=== PATIENT | female | born 1985 | race Caucasian/White ===

== ENCOUNTER 2019-03-05 23:16 | Emergency (ER) | payer OTHER, SELFPAY ==
[2019-03-05 23:38] VITALS: BP 115/78; PULSE 74; RESP 18; TEMP 36.6; O2SAT 100
--- NOTE | 2019-03-05 23:58 | ED.WOUNDLAC ---
HPI - Wound/Laceration General Chief Complaint: Wound/Laceration Stated Complaint: Laceration Source: patient Mode of arrival: ambulatory Limitations: no limitations History of Present Illness HPI narrative: 33-year-old female presents to the emergency department with some small avulsion injury to the webbing of her left thumb and index finger that occurred earlier this evening after she would reach in to a garbage can and other was a piece of glass that caused some an avulsion injury. Initially there was some some bleeding was minimal currently no bleeding of the patient presented because of some numbness to her left thumb with some mild swelling. Onset (ago): hour(s) Extremity Location: Left: hand (small avulsion injury to the web of her left thumb) Place: home Patient tetanus UTD: Yes Context: accidental Associated symptoms: pain Related Data Home Medications Medication Instructions Recorded Confirmed No Home Medications 03/05/19 03/05/19 Allergies Allergy/AdvReac Type Severity Reaction Status Date / Time amoxicillin Allergy Unknown Verified 03/05/19 23:36 Review of Systems Review of Systems: All systems reviewed & are unremarkable except as noted in HPI and below PMFSH Past Medical History Medical History Patient denies medical problems Exam Const: General: no acute distress Nutritional Appearance: well nourished Orientation/consciousness: patient oriented x3 HENMT: Head: normal to inspection Eyes: Conjunctivae: conjunctivae normal Pupils: Equal, round and reactive pupils present Neck: Neck: normal visual inspection and no lymphadenopathy Resp: Effort & Inspection: normal respiratory effort Cardio: Rate: regular rate GI: GI Palp: Yes Soft to palpation Skin: General skin exam: normal color Rashes: no rashes Neuro: General: patient oriented x3 and moves all extremities Extrem: General: normal to inspection Other: Small 1cm avulsion injury to the webbing of her left thumb between her left thumb and index finger Psych: Mental Status: mental status grossly normal Course Vital Signs Vital signs: Vital Signs Temperature 36.6 C 03/05/19 23:38 Pulse Rate 74 03/05/19 23:38 Respiratory Rate 18 03/05/19 23:38 Blood Pressure 115/78 03/05/19 23:38 Pulse Oximetry 100 03/05/19 23:38 Temperature 36.6 C 03/05/19 23:38 Pulse Rate 74 03/05/19 23:38 Respiratory Rate 18 03/05/19 23:38 Blood Pressure 115/78 03/05/19 23:38 Pulse Oximetry 100 03/05/19 23:38 Procedures Laceration Laceration 1: Date: 03/06/19 Time: 00:03 Site: hand Side (If applicable): left Size (cm): 1 Description: flap Depth: simple, single layer Pre-repair: wound explored and irrigated ====== Skin Level ====== Skin layer closed with: dermabond ====== Subcutaneous Layer ====== ====== Muscle Layer ====== ====== Tendon Layer ====== Critical Care Time Critical Care Time Critical Care Time: No Discharge Plan Discharge Clinical Impression: Avulsion of skin, Laceration Patient Disposition: Home, Self-Care Condition: Stable Instructions: Antibiotic Form, Laceration (ED), Skin Adhesive Care (ED) Additional Instructions: follow-up with primary care physician if symptoms persist or worsen. Prescriptions: No Action No Home Medications RF: 0 Follow-up/Referrals: Larry Engel MD [Primary Care Provider] - Time of Disposition: 00:05
[2019-03-06 00:10] VITALS: RESP 15; O2SAT 99
== END 2019-03-06 00:10 | disposition home or self-care (01) ==
PROVIDERS: Emergency Provider Emergency Medicine; PCP Internal Medicine
DX: S61.412A Laceration without foreign body of left hand, initial encounter (principal); W45.8XXA Other foreign body or object entering through skin, initial encounter
CPT/HCPCS: 12001; 99282

== ENCOUNTER 2020-11-05 11:04 | Outpatient (CLI) | payer OTHER, SELFPAY ==
[2020-11-05 12:29] LABS: SARS-CoV-2 RNA PCR Negative (Negative)
== END 2020-11-05 11:05 | disposition home or self-care (01) ==
LOC: CHSLAB 11:09
PROVIDERS: PCP Internal Medicine; Visit Provider Internal Medicine
DX: Z20.822 Contact with and (suspected) exposure to COVID-19 (principal)
CPT/HCPCS: C9803; U0003; U0005

== ENCOUNTER 2021-02-09 16:21 | Outpatient (CLI) | payer OTHER, SELFPAY ==
[2021-02-09 17:53] LABS: Influenza Control Valid (Valid)
[2021-02-09 17:54] LABS: SARS-CoV-2 Ag Negative (Negative)
== END 2021-02-09 16:22 | disposition home or self-care (01) ==
LOC: CHSLAB 16:24
PROVIDERS: PCP Internal Medicine; Visit Provider Internal Medicine
DX: J06.9 Acute upper respiratory infection, unspecified (principal); Z20.822 Contact with and (suspected) exposure to COVID-19
CPT/HCPCS: 36415; 87426; 87804; C9803

== ENCOUNTER 2023-07-25 13:03 | Outpatient (CLI) | payer OTHER, SELFPAY ==
--- NOTE | ~2023-07-25 | US_ITS ---
EXAMINATION: US OB <= 14 weeks fetus DATE: 07/25/2023 13:45 INDICATION: Amenorrhea, unspecified. TECHNIQUE: Real-time transabdominal pelvic ultrasound was performed. COMPARISON: None. FINDINGS: The uterus measures 10.3 x 7.8 x 6.1 cm. There is an intrauterine gestational sac with mean diameter of 2.6 cm. A yolk sac is identified. The crown rump length measures 0.6 cm. The gestational sa c size and crown rump length together correlate with an estimated gestational age of 7 weeks an d 0 day(s) (+/-) 3 day(s). heart motion is identified measuring 157 beats per minute (bpm) by M -mode Doppler. There is a small subchorionic hematoma. The right ovary is not visualized. The left ov dori measures 3.0 x 3.2 x 3.7 cm. There is no free fluid in the pelvis. IMPRESSION: 1. Single live intrauterine gestation with estimated date of delivery of 03/12/2024. 2. Small subchorionic hematoma. Reviewed, dictated and finalized at location A. IMPRESSION: 1. Single live intrauterine gestation with estimated date of delivery of 025. 2. Small subchorionic hematoma.
== END 2023-07-25 13:04 | disposition home or self-care (01) ==
PROVIDERS: PCP Internal Medicine; Visit Provider Nurse Practitioner Obstetrics & Gynecology
DX: N91.2 Amenorrhea, unspecified (principal); Z33.1 Pregnant state, incidental
CPT/HCPCS: 76801

== ENCOUNTER 2023-10-27 11:51 | Outpatient (CLI) | payer OTHER, SELFPAY ==
--- NOTE | ~2023-10-27 | US_ITS ---
EXAMINATION: US OB limited DATE: 10/27/2023 12:11 INDICATION: Antepartum hemorrhage. TECHNIQUE: Real-time ultrasound of the pelvis was performed. COMPARISON: Ultrasound 07/25/2023 FINDINGS: There is a single fetus in vertex presentation. The placenta is anterior, 1.2 cm from the cervix. Fe hany heart rate is 140 beats per minute (bpm). The amniotic fluid volume is subjectively normal. The d eepest vertical pocket is 5.3 cm which is normal. IMPRESSION: 1. Single living fetus in vertex presentation. 2. No hematoma. 3. Low-lying placenta. Reviewed, dictated and finalized at location A.
== END 2023-10-27 11:52 | disposition home or self-care (01) ==
LOC: ANHIMG 11:52
PROVIDERS: PCP Internal Medicine; Visit Provider Nurse Practitioner Obstetrics & Gynecology
DX: O44.40 Low lying placenta NOS or without hemorrhage, unspecified trimester (principal); Z3A.00 Weeks of gestation of pregnancy not specified
CPT/HCPCS: 76815

== ENCOUNTER 2023-11-30 08:46 | Outpatient (CLI) | payer OTHER, SELFPAY ==
[2023-11-30 10:11] LABS: Basophils Absolute Auto 0.03 K/mm3 (0.00-0.10); Basophils Percent Auto 0.3 % (0.0-1.0); Eosinophils Absolute Auto 0.22 K/mm3 (0.02-0.50); Hematocrit 34.5 % (35.0-49.0); Hemoglobin 11.4 g/dL (12.0-15.0); Immature Granulocyte Absolute 0.12 K/mm3 (0.00-0.00); Immature Granulocyte Percent A 1.1 % (0.0-0.0); Lymphocytes Percent Auto 18.5 % (18.0-42.0); Mean Corpuscular Hemoglobin 31.4 pg (27.0-31.0); Mean Platelet Volume 9.9 fl (9.2-11.8); Monocytes Absolute Auto 0.69 K/mm3 (0.10-0.90); Monocytes Percent Auto 6.4 % (2.0-11.0); Neutrophils Absolute Auto 7.78 K/mm3 (1.70-7.20); Neutrophils Percent Auto 71.7 % (50.0-70.0); Platelet Count Result 229 K/mm3 (150-420); Red Blood Count 3.63 M/mm3 (4.20-5.40); Red Cell Distribution Width 12.1 % (11.6-14.4); White Blood Count 10.8 K/mm3 (4.8-10.8)
[2023-11-30 10:45] LABS: Glucose 1 Hour PP 50gm Dose 75 mg/dL (70-130)
== END 2023-11-30 08:47 | disposition home or self-care (01) ==
LOC: CHSLAB 08:47
PROVIDERS: PCP Internal Medicine; Visit Provider Obstetrics & Gynecology
DX: O09.90 Supervision of high risk pregnancy, unspecified, unspecified trimester (principal)
CPT/HCPCS: 36415; 82105; 82677; 82947; 84702; 85025; 86336

== ENCOUNTER 2024-01-23 09:45 | Outpatient (CLI) | payer OTHER, SELFPAY ==
[2024-01-23 10:06] LABS: Basophils Absolute Auto 0.04 K/mm3 (0.00-0.10); Basophils Percent Auto 0.3 % (0.0-1.0); Eosinophils Absolute Auto 0.23 K/mm3 (0.02-0.50); Eosinophils Percent Auto 1.8 % (1.0-6.0); Hematocrit 34.9 % (35.0-49.0); Hemoglobin 11.8 g/dL (12.0-15.0); Immature Granulocyte Absolute 0.22 K/mm3 (0.00-0.00); Immature Granulocyte Percent A 1.8 % (0.0-0.0); Lymphocytes Absolute Auto 2.07 K/mm3 (1.10-4.50); Lymphocytes Percent Auto 16.6 % (18.0-42.0); Mean Corpuscular HGB Conc 33.8 g/dL (32-36); Mean Corpuscular Hemoglobin 30.8 pg (27.0-31.0); Mean Corpuscular Volume 91.1 fL (78.0-102.0); Mean Platelet Volume 9.7 fl (9.2-11.8); Monocytes Absolute Auto 0.81 K/mm3 (0.10-0.90); Monocytes Percent Auto 6.5 % (2.0-11.0); Neutrophils Absolute Auto 9.11 K/mm3 (1.70-7.20); Platelet Count Result 215 K/mm3 (150-420); Red Blood Count 3.83 M/mm3 (4.20-5.40); Red Cell Distribution Width 12.7 % (11.6-14.4); White Blood Count 12.5 K/mm3 (4.8-10.8)
[2024-01-23 10:12] LABS: Add Urine Microscopic? YES; Appearance Urine Clear (Clear); Bilirubin Urine Negative (Negative); Blood Urine Negative (Negative); Color Urine Yellow (Yellow); Glucose Urine UA Negative (Negative); Ketones Urine Negative (Negative); Leukocyte Esterase Ur Negative (Negative); Nitrate Urine Negative (Negative); Protein Urine Trace (Negative); Specific Grav Ur 1.015 (1.010-1.020); Urobilinogen Urine 0.2 mg/dL (0.2-1.0); pH Urine 6.5 (5.0-8.0)
[2024-01-23 10:14] LABS: Bacteria Urine Trace /hpf; RBC Urine None seen /hpf (0-2); Squamous Epithelial Cell Urine Few /hpf (Few); WBC Urine None seen /hpf (0-3)
[2024-01-23 11:39] LABS: HIV 1 P24 AG Negative (Negative); HIV 1/2 AB Negative (Negative)
[2024-01-25 16:58] LABS: RPR Screen NON-REACTIVE (NON-REACTIVE)
== END 2024-01-23 09:46 | disposition home or self-care (01) ==
LOC: CHSLAB 09:47
PROVIDERS: Obstetrics & Gynecology; PCP Internal Medicine; Visit Provider Nurse Practitioner Obstetrics & Gynecology
DX: Z34.90 Encounter for supervision of normal pregnancy, unspecified, unspecified trimester (principal)
CPT/HCPCS: 36415; 81001; 85025; 86592; 86850; 86900; 86901; 87806

== ENCOUNTER 2024-02-28 09:12 | Outpatient (RCR) | payer OTHER, SELFPAY ==
[2024-02-21 09:31] VITALS: BP 120/83; PULSE 99
--- NOTE | ~2024-02-28 | US_ITS ---
EXAMINATION: US OB limited DATE: 02/21/2024 09:55 INDICATION: Advanced maternal age. Third trimester. TECHNIQUE: Real-time ultrasound of the pelvis was performed. COMPARISON: Ultrasound 10/27/2023 FINDINGS: There is a single fetus in vertex presentation. The placenta is anterior. heart rate is 144 be ats per minute (bpm). The amniotic fluid index is 15.9 cm, which is normal. IMPRESSION: 1. Single living fetus in vertex presentation. 2. Normal amniotic fluid index. Reviewed, dictated and finalized at location A. RUCTIONAL SUPPORT ASSISTANT
--- NOTE | ~2024-02-28 | US_ITS ---
US OB limited 02/28/2024 10:26 Indication: Evaluate amniotic fluid index Procedure: High-resolution Limited obstetrical ultrasound Comparison: 02/21/2024 Findings: There is a single living intrauterine in vertex presentation. Placenta is located anterior without previa. Amniotic fluid index is at the upper end of normal measuring 23.6 cm. Swati l range 7.3-23.9 cm. heart rate is 134 BPM. Impression: 1: KAISER is at the upper limits of normal measuring 23.6 cm. Reviewed, dictated and finalized at location A. EATION ADVISER Impression: 1: KAISER is at the upper limits of normal measuring 23.6 cm.
[2024-02-28 09:46] VITALS: BP 114/79; PULSE 94
== END 2024-04-06 07:54 | disposition home or self-care (01) ==
LOC: ANHOBOP 09:12
PROVIDERS: PCP Internal Medicine; Visit Provider Obstetrics & Gynecology
DX: O09.513 Supervision of elderly primigravida, third trimester (principal)
CPT/HCPCS: 59025; 76815

== ENCOUNTER 2024-03-04 10:36 | Outpatient (CLI) | payer OTHER, SELFPAY ==
[2024-03-04 11:08] LABS: Hematocrit 37.3 % (37.0-47.0); Mean Corpuscular HGB Conc 32.2 g/dl (32-36); Mean Corpuscular Hemoglobin 30.8 pg (26-34); Mean Corpuscular Volume 95.6 fl (80-100); Mean Platelet Volume 10.6 fl (7.4-10.4); Platelet Count Result 210 k/mm3 (150-375); Red Cell Distribution Width 13.7 % (11.5-14.5); White Blood Count 10.9 K/mm3 (4.5-10.0)
--- OUTSIDE RECORDS SUMMARY | 2024-03-04 11:40 | XMS_ITS | Clinical Summary ---
Author Organization [facility] Address [address] [place] [address] Phone Care Team Providers Care Radiation Physicist Name Role Phone Unavailable Primary Care Provider Unavailabl e Encounters Date Type Department Care Team Description 02/29/2024 External Device Data STL ABSTRACTION Provider, Abstract 02/27/2024 External Device Data STL ABSTRACTION Provider, Abstract 02/13/2024 8:00 AM PACKAGE CHECKER - 02/13/2024 11:59 PM PACKAGE CHECKER Hospital Encounter [facility] [address] [place] [address] Demetri Brewer MD Discharge Disposition: Home or Self Care 01/15/2024 8:30 AM PACKAGE CHECKER - 01/15/2024 11:59 PM PACKAGE CHECKER Hospital Encounter [facility] [address] [place] [address] Dwayne Germain MD Discharge Disposition: Home or Self Care from Last 3 Months Social History Tobacco Use Types Packs/Day Years Used Date Smoking Tobacco: Never Assessed Comments Unknown Sex and Gender Information Value Date Recorded Sex Assigned at Not on file Legal Sex Female 7:32 AM CDT Gender Identity Not on file Sexual Orientation Not on file Plan of Treatment Health Maintenance Due Date Last Done Comments DTAP/TDAP/TD VACCINES (1 - Tdap) 05/19/2006 HEPATITIS B VACCINES (1 of 3 - 19+ 3-dose series) 05/19/2006 CERVICAL CANCER SCREENING 05/19/2017 INFLUENZA VACCINE (#1) 2023 HPV VACCINES Aged Out No longer eligi ble based on patient's age to complete this topic PNEUMOCOCCAL VACCINE 0-64 YEARS Aged Out No longer eligible based on patient's age to complete this topic Procedures Procedure Name Priority Date/Time Associated Diagnosis Comments US OB FOLLOW UP PER FETUS Routine 02/13/2024 8:28 AM PACKAGE CHECKER Advanced maternal age in multigravida, third trimester Large for dates US OB FOLLOW UP PER FETUS Routine 01/15/2024 8:57 AM PACKAGE CHECKER Encounter for ultrasound to assess growth Advanced maternal age in multigravida, second trimester Uterine size date discrepancy Low-lying placenta from Last 3 Months Results * US OB FOLLOW UP PER FETUS (02/13/2024 8:28 AM PACKAGE CHECKER) Only the most recent of2 resultswithin the time period is included. Anatomical Region Laterality Modality Pelvis Ultrasound 02/13/2024 8:02 AM PACKAGE CHECKER Narrative 02/14/2024 3:26 PM PACKAGE CHECKER STL FOLLOW UP ----- Pat. Name: ANGELA LAKE Study Date: 02/13/2024 8:02am Pat. NO: [id number] Referring ??MD: DWAYNE GERMAIN MD Site: [place] [employer] Machine Operator: Monica Pearce RDMS : 1985 Age: 38 ----- INDICATION ----- Screening Follow-Up Advanced Maternal Age (AMA), Multigravida Maternal Care for Low Transverse Scar from Previous Delivery (Previous ) CODING ----- Diagnoses ? Z3A.36: Weeks of gestation ?O34.211: Maternal care for low transverse scar from previous delivery ?O09.523: Supervision of elderly multigravida ?Z36.3: Encounter for screening for malformations ?Z3A.36: Weeks of gestation ?O09.523: Supervision of elderly multigravida ?Z36.2: Encounter for other screening follow-up Procedures ?73740: Ultrasound, uterus, real time with image documentation, follow up, transabdominal ?approach per fetus HISTORY ----- OB History ? 2. Para 1 ?T1L1 METHOD ----- Transabdominal ultrasound examination ----- Dennison . Number of fetuses: 1 DATING ----- GA by prior assessment 36 w + 1 d VEE by prior assessment: 03/11/2024 Ultrasound examination on: 02/13/2024 GA by U/S based upon: AC, BPD, EFW, Femur, HC GA by U/S 38 w + 5 d VEE by U/S: 02/22/2024 Method of dating: Restore dating from previous exam Assigned: based on stated VEE, selected on 10/26/2023 Assigned GA 36 w + 1 d Assigned VEE: 03/11/2024 BIOMETRY ----- BPD ?94.6 ?mm ?38w 4d ?98% ?Hadlock OFD ?115.8 ? mm ?-/- ?94% ?Froylan HC ? 334.8 ? mm ?38w 2d ?73% ?Hadlock AC ? 357.4 ? mm ?39w 5d ?>99% ?Hadlock Femur ?72.7 ?mm ?37w 2d ?74% ?Hadlock HC / AC ?0.94 ?10% ?Nicolaides Weight Calculation: EFW ? 3,610 ? g ? 40w 0d ?98% ?Hadlock EFW (lb,oz) ? 7 lb 15 ? oz EFW by ?Hadlock ([id number]) Head / Face / Neck Biometry: Contact Center Assistant ? 3.9 ? mm Extremities / Bony Struc Biometry: FL / BPD ?0.77 FL / HC ? 0.22 FL / AC ? 0.20 GENERAL EVALUATION ----- Cardiac activity present. FHR 141 bpm. movements: present. Presentation: cephalic Placenta: Placental site: anterior Umbilical cord: Cord vessels: 3 vessel cord. Insertion site: placental insertion: normal Amniotic fluid: Amount of AF: normal amount. MVP 8.9 cm. KAISER 22.9 cm. Q1 5.5 cm, Q2 8.9 cm, Q3 3.2 cm, Q4 5.3 cm ANATOMY ----- The following structures appear normal: Head / Neck ? Cranium. Lateral ventricles. Cavum septi pellucidi. Heart / Thorax ?Diaphragm. Abdomen ? Stomach. Kidneys. Bladder. GROWTH OVERVIEW ----- Exam date ? GA ?BPD (mm) ?HC (mm) ?AC (mm) ?FL (mm) ?HL (mm) ? EFW (g) 10/26/2023 ?20w 3d ?50.0 ?77% ? 184.1 ? 58% ?161.3 ?70% ? 34.3 ?55% ?32.5 ?69% ? 392 ? 75% 01/15/2024 ? 32w 0d ?87.9 ?>99% ?315.3 ? 92% ?311.4 ?>99% ?64.2 ?69% ? 2,478 ? 98% 02/13/2024 ? 36w 1d ?94.6 ?98% ? 334.8 ? 73% ?357.4 ?>99% ?72.7 ?74% ? 3,610 ? 98% COMMENT ----- Patient's name and date of were verified by the airconditioning drafting officer prior to the exam IMPRESSION ----- 1. Single living fetus with a gestational age of 36w 1d, based on the reported clinical dates. 2. Current growth parameters are consistent with the stated EDC. The size is appropriate for gestational age at 98% percentile (3610 g). 3. Unremarkable limited anatomy noted. A detailed anatomy cannot be performed secondary to advanced gestational age. However, there are no gross structural abnormalities noted. 4. The amniotic fluid is at the upper limits of normal for gestational age (MVP:8.9 cm , KAISER:22.9 cm ). 5. Anterior placenta. No previa/not low-lying. 6. Cephalic presentation. Recommendations: - Further imaging as indicated. Thank you for allowing us to participate in the care of this patient. ADDENDUM ----- retrigger order Procedure Note Nina Hughes MD - 02/14/2024 STL FOLLOW UP ----- Pat. Name:Lizandro LAKE Date:02/13/2024 8:02am Pat. NO: [id number] MD:DWAYNE GERMAIN [facility]Mon[facility] Pearce RDMS :1985Age:38 ----- INDICATION ----- Screening Follow-Up Advanced Maternal Age (AMA), Multigravida Maternal Care for Low Transverse Scar from Previous Delivery (Previous ) CODING ----- Diagnoses Z3A.36: Weeks of gestation O34.211: Maternal care for low transverse scarfrom previous delivery O09.523: Supervision of elderly multigravida Z36.3: Encounter for screening formalformations Z3A.36: Weeks of gestation O09.523: Supervision of elderly multigravida Z36.2: Encounter for other screeningfollow-up Procedures 56970: Ultrasound, uterus, real time withimage documentation, follow up, transabdominal approach per fetus HISTORY ----- OB History 2. Para 1 T1L1 METHOD ----- Transabdominal ultrasound examination ----- Dennison . Number of fetuses: 1 DATING ----- GA by prior [id number] w + 1 d VEE by prior assessment:03/11/2024 Ultrasound examination on:02/13/2024 GA by U/S based upon:AC, BPD, EFW, Femur, HC GA by U/S38 w + 5 d VEE by U/S:02/22/2024 Method of dating:Restore dating from previous exam Assigned:based on stated VEE, selected on 10/26/2023 Assigned GA36 w + 1 d Assigned VEE:03/11/2024 BIOMETRY ----- BPD 94.6 mm 38w 4d 98%Hadlock OFD 115.8 mm -/- 94%Froylan HC 334.8 mm 38w 2d 73%Hadlock AC 357.4 mm 39w 5d >99%Hadlock Femur 72.7 mm 37w 2d 74%Hadlock HC / AC 0.94 10%Nicolaides Weight Calculation: EFW 3,610 g 40w 0d98% Hadlock EFW (lb,oz) 7 lb 15 oz EFW by Hadlock ([id number]) Head / Face / Neck Biometry: Contact Center Assistant 3.9mm Extremities / Bony Struc Biometry: FL / BPD 0.77 FL / HC 0.22 FL / AC 0.20 GENERAL EVALUATION ----- Cardiac activity present. FHR 141 bpm. movements: present.Presentation: cephalic Placenta: Placental site: anterior Umbilical cord: Cord vessels: 3 vessel cord. Insertion site: placentalinsertion: normal Amniotic fluid: Amount of AF: normal amount. MVP 8.9 cm. KAISER 22.9 cm. Q15.5 cm, Q2 8.9 cm, Q3 3.2 cm, Q4 5.3 cm ANATOMY ----- The following structures appear normal: Head / Neck Cranium. Lateral ventricles. Cavum septipellucidi. Heart / Thorax Diaphragm. Abdomen Stomach. Kidneys. Bladder. GROWTH OVERVIEW ----- Exam date GA BPD (mm) HC (mm) AC (mm)FL (mm) HL (mm) EFW (g) 10/26/2023 20w 3d 50.0 77% 184.1 58% 161.3 70%34.3 55% 32.5 69% 392 75% 01/15/2024 32w 0d 87.9 >99% 315.3 92% 311.4 >99%64.2 69% 2,478 98% 02/13/2024 36w 1d 94.6 98% 334.8 73% 357.4 >99%72.7 74% 3,610 98% COMMENT ----- Patient's name and date of were verified by the airconditioning drafting officer prior tothe exam IMPRESSION ----- 1. Single living fetus with a gestational age of 36w 1d, based on thereported clinical dates. 2. Current growth parameters are consistent with the stated EDC. The fetalsize is appropriate for gestational age at 98% percentile (3610 g). 3. Unremarkable limited anatomy noted. A detailed anatomycannot be performed secondary to advanced gestational age. However, there are no gross structural abnormalities noted. 4. The amniotic fluid is at the upper limits of normal for gestational age(MVP:8.9 cm , KAISER:22.9 cm ). 5. Anterior placenta. No previa/not low-lying. 6. Cephalic presentation. Recommendations: - Further imaging as indicated. Thank you for allowing us to participate in the care of this patient. ADDENDUM ----- retrigger order Demetri Brewer MD ORDERABLES Aurelia schwab - Final from Last 3 Months Insurance MEDICAID
--- OUTSIDE RECORDS SUMMARY | 2024-03-04 11:40 | XMS_ITS | Clinical Summary ---
Author Organization [facility] Address [address] [place] [address]. [place], [place] [address] [place] [address] Care Team Providers Care Screw Machine Operator Single Spindle Name Role Phone Unavailable Primary Care Provider Unavailabl e Social History Tobacco Use Types Packs/Day Years Used Date Smoking Tobacco: Never Assessed Comments Unknown Sex and Gender Information Value Date Recorded Sex Assigned at Not on file Legal Sex Female 8:10 PM CDT Gender Identity Not on file Sexual Orientation Not on file Plan of Treatment Health Maintenance Due Date Last Done Comments Cervical Cancer Screening Pa p Smear (Age 30 to 64) Every 3 Years 1985 Annual Physical 05/19/1990 Hepatitis C 05/19/2005 DTaP, Tdap and Td Vaccines ( 1 - Tdap) 05/19/2006 Hepatitis B Vaccines (1 of 3 - 19+ 3-dose series) 05/19/2006 Cervical Cancer Screening Pa p with HPV Testing (Age 30 to 64) Every 5 Years 05/19/2017 Cervical Cancer Screening with HPV 05/19/2017 COVID-19 Vaccine (2023-2 5 season) 2023 Influenza Adult (#1) 2023 HPV Vaccines Aged Out No longer eligi ble based on patient's age to complete this topic Meningococcal B Vaccine Aged Out No l onger eligible based on patient's age to complete this topic Meningococcal Vaccine Aged Out No derrick barbara eligible based on patient's age to complete this topic Pneumococcal Vaccine: Pediat rics (0 to 5 Years) and At-Risk Patients (6 to 64 Years) Aged Out No longer eligible b ased on patient's age to complete this topic RSV Immunizations Under 20 Months Aged Out No longer eligible based on patient's age to complete this topic
[2024-03-04 11:59] LABS: HIV 1/2 Ab P24 Ag Result Negative (Negative)
[2024-03-04 12:35] LABS: Rapid Plasma Reagin Non-Reactive (NonReactive)
== END 2024-03-04 10:37 | disposition home or self-care (01) ==
LOC: ANHLAB 10:38
PROVIDERS: PCP Internal Medicine; Visit Provider Obstetrics & Gynecology
DX: Z34.93 Encounter for supervision of normal pregnancy, unspecified, third trimester (principal); Z3A.00 Weeks of gestation of pregnancy not specified
CPT/HCPCS: 36415; 85027; 86592; 86703; 86900; 86901; G0432

== ENCOUNTER 2024-03-05 05:35 | Inpatient (IN) | payer OTHER, SELFPAY ==
[2024-03-05] VITALS (68 sets, daily range): BP systolic 94–137; BP diastolic 37–102; PULSE 58–114; RESP 12–19; TEMP 36.3–37.1; O2SAT 98–100; BMI 36.3
--- NOTE | 2024-03-05 05:35 | LDADM ---
This patient, Angela Lake, was admitted to Labor/Delivery/Recovery 120 on 03/05/24 at 05:35. Plans for labor, pain management and were discussed with patient. Patient/family oriented to hospital policies and general routines including ID bracelet, bed and alarms, visiting hours, pain management, procedures, bathroom and other care routines, personal items, smoking policy, room service/diet and guest tray routines, infant security routines, and visiting hours. Patient/Family are encouraged to report perceived risks to care and to ask questions if they do not understand what they are told or what they should do. See OBIX for further documentation.
--- OUTSIDE RECORDS SUMMARY | 2024-03-05 05:39 | XMS_ITS | Clinical Summary ---
Author Organization [facility] Address [address] [place] [address] Phone Care Team Providers Care Primary Care Provider Name Role Phone Unavailable Primary Care Provider Unavailabl e Encounters Date Type Department Care Team Description 02/29/2024 External Device Data STL ABSTRACTION Provider, Abstract 02/27/2024 External Device Data STL ABSTRACTION Provider, Abstract 02/13/2024 8:00 AM AIR CONDITIONING ENGINEER - 02/13/2024 11:59 PM AIR CONDITIONING ENGINEER Hospital Encounter [facility] [address] [place] [address] Demetri Brewer MD Discharge Disposition: Home or Self Care 01/15/2024 8:30 AM AIR CONDITIONING ENGINEER - 01/15/2024 11:59 PM AIR CONDITIONING ENGINEER Hospital Encounter [facility] [address] [place] [address] Dwayne Germain MD Discharge Disposition: Home or [...] UP PER FETUS Routine 02/13/2024 8:28 AM AIR CONDITIONING ENGINEER Advanced maternal age in multigravida, third trimester Large for dates US OB FOLLOW UP PER FETUS Routine 01/15/2024 8:57 AM AIR CONDITIONING ENGINEER Encounter for ultrasound to assess growth Advanced maternal age in multigravida, second trimester Uterine size date discrepancy Low-lying placenta from Last 3 Months Results * US OB FOLLOW UP PER FETUS (02/13/2024 8:28 AM AIR CONDITIONING ENGINEER) Only the most recent of2 resultswithin the time period is included. Anatomical Region Laterality Modality Pelvis Ultrasound 02/13/2024 8:02 AM AIR CONDITIONING ENGINEER Narrative 02/14/2024 3:26 PM AIR CONDITIONING ENGINEER STL FOLLOW UP ----- Pat. Name: ANGELA LAKE Study Date: 02/13/2024 8:02am Pat. NO: [id number] Referring ??MD: DWAYNE GERMAIN MD Site: [place] Valet Runner: Monica Pearce RDMS : 1985 Age: 38 [...] ?Z36.2: Encounter for other screening follow-up Procedures ?43070: Ultrasound, uterus, real time with image documentation, [...] lb 15 ? oz EFW by ?Hadlock ([id number]) Head / Face / Neck Biometry: Entertainment & Media Correspondent ? 3.9 ? mm Extremities / Bony [...] and date of were verified by the personal lines sales rep prior to the exam IMPRESSION ----- 1. [...] Pat. Name:Lizandro LAKE Date:02/13/2024 8:02am Pat. NO: [id number] MD:DWAYNE GERMAIN MD [facility]Monica Pearce RDMS :1985Age:38 ----- INDICATION ----- Screening [...] multigravida Z36.2: Encounter for other screeningfollow-up Procedures 34502: Ultrasound, uterus, real time withimage documentation, follow up, transabdominal approach per fetus HISTORY ----- OB History 2. Para 1 T1L1 METHOD ----- Transabdominal ultrasound examination ----- Dennison . Number of fetuses: 1 DATING ----- GA by prior [id number] w + 1 d VEE by prior [...] 7 lb 15 oz EFW by Hadlock ([id number]) Head / Face / Neck Biometry: Entertainment & Media Correspondent 3.9mm Extremities / Bony Struc Biometry: FL [...] and date of were verified by the personal lines sales rep prior tothe exam IMPRESSION ----- 1. Single [...]
--- OUTSIDE RECORDS SUMMARY | 2024-03-05 05:39 | XMS_ITS | Clinical Summary ---
Author Organization [facility] Address [address] [place] [address]. [place], [place] [address] [place] [address] Care Team Providers Care Bicycle Taxi Driver Name Role Phone Unavailable Primary Care Provider [...]
[2024-03-05] MEDS: LACTATED RINGERS 1,000 ML 125 ML IV CONT ×3 (06:30→09:32)
[2024-03-05] MEDS: ACETAMINOPHEN 500 MG TABLET 1000 MG PO (06:34)
--- NOTE | 2024-03-05 07:07 | WPDANESEPPF ---
Anes - Initial Pre Proc Eval Procedure: Operation Date: 03/05/24 07:30 Proposed Procedures p Repeat Section - Dwayne Badillo MD Date/Time: 03/05/24 07:07 Surgeon: Dwayne Badillo MD Pre Op Diagnosis: C/S Patient Data Age: 38 Gender: F Height: 1.68 m Weight: 102.25 kg Last Vital Signs Pulse 88 03/05/24 07:00 BP 120/79 03/05/24 07:00 Pulse Ox 99 03/05/24 07:06 O2 Del Method Room Air 03/05/24 06:39 Allergies Allergy/AdvReac Type Severity Reaction Status Date / Time clavulanic acid (From Allergy Mild Hives Verified 02/28/24 14:21 Augmentin) Home Medications ?Medication ?Instructions ?Recorded ?Confirmed ?Type docosahexaenoic acid 200 mg mg PO 07/21/23 02/14/24 History capsule ( DHA) Patient hx anesthesia problems: none Family hx anesthesia problems: none Results Review: All pre-operative results and documents have been reviewed as part of the pre-operative evaluation. [facility] Past Medical History Medical History Frequent headaches Anxiety Patient denies medical problems Surgical History Surgical History H/O section Family History Family History Father Diabetes mellitus borderline Mother Depression Hypertension Social History Social History Smoking status: Former smoker Tobacco type: e-cigarettes/vaping Second hand tobacco smoke exposure: No Alcohol intake: never Substance use: current Do You Feel Safe in your Home?: Yes Lack of Transportation: No Lack of Food: Never True Current Housing: I Have Housing Concerned About Future Housing: No Difficulty Paying Gas/Electric Bills: No Difficulty Paying for Meds: No Currently Unemployed: No Education: Associate Degree Difficulty w/ Childcare or Family Care: No Spiritual care concerns: No Anes - Eval Final PreProcedure Day of Procedure 03/05/24 07:07 Patient weight: obese Heart: regular rate and rhythm Lungs: clear to auscultation and normal air movement Airway: Mallampati scale class II Neurological: alert and oriented Last oral intake: >/= 8 hours ASA classification: II Emergent: no Anesthetic plan: proceed Anesthesia type and monitoring: regional spinal and standard monitoring Results Review: All pre-operative results and documents have been reviewed as part of the pre-operative evaluation. Informed Consent: The patient's anesthetic plan and its attendant risks and benefits were discussed with the patient/family/POA. Questions were solicited and answers provided to the satisfaction of the patient/family/POA.
[2024-03-05] MEDS: FAMOTIDINE 20 MG/2 ML VIAL IV PUSH (08:10)
[2024-03-05] MEDS: ONDANSETRON INJ 4 MG/2 ML VIAL IV PUSH (08:10)
[2024-03-05] MEDS: ceFAZolin 2 GM/D5W 50 ML 2 GM/50 ML BAG IVPB (08:17)
--- NOTE | 2024-03-05 08:18 | WPDHPUPDATE1 ---
History and Physical Update Update Date/Time: 03/05/24 08:18 History and Physical has been reviewed, including an updated exam of the patient. There are NO changes in the patient's condition. Risks, benefits, and alternatives have been discussed and questions answered. Patient agrees to proceed with procedure.
[2024-03-05] MEDS: MORPHINE SULFATE INJ (*CRX) 10 MG/ML AMP 2.5 MG IV PUSH (10:34)
[2024-03-05] MEDS: OXYTOCIN 30 UNITS/NS 500 ML 30 UNITS/500 ML BAG 125 UNITS IV CONT (10:35)
--- NOTE | 2024-03-05 12:04 | OBPPTRN ---
Patient transferred to post room #278 via stretcher. Support person present. Oriented to unit, room, information board, rooming in, admission packet and security measures. Patient verbalizes understanding.
--- NOTE | 2024-03-05 13:16 | P.HP_ITS ---
H&P: HPI History of Present Illness Date/Time: 03/05/24 13:16 Chief Complaint: Repeat section Narrative: Patient is a 38 y/o at 39 weeks by LMP 06/05/23 with an EDC 03/11/24. PNC significant for prior section for breech. She has been counseled on delivery options and opts for repeat section. PNC also significant for AMA, h/o tobacco abuse counseled and recommended cessation,LGA. Prior child with genetic disorder she declined genetic counseling with this . Review of Systems Review of Systems: All systems reviewed & are unremarkable except as noted in HPI and below Constitutional: Constitutional: Reports no additional constitutional co mplaints and Denies headache(s) Eyes: Eyes: Denies spots in vision ENT: Reports system reviewed and no additional complaints, except as documented and Denies headache(s) Cardiovascular: Cardiovascular: Denies chest pain and Denies dyspnea Respiratory: Respiratory: Denies dyspnea Gastrointestinal: Gastrointestinal: Reports no additional gastrointestinal complaints Genitourinary: Genitourinary: Reports amenorrhea Musculoskeletal: Musculoskeletal: Reports no additional musculoskeletal complaints Integumentary/Breasts: Skin/Breast: Denies breast mass and Denies rash Neurologic: Denies headache(s) Psychiatric: Psychiatric: Reports no additional psychiatric complaints PMFSH Past Medical History Medical History Frequent headaches Anxiety Patient denies medical problems Surgical History Surgical History H/O section Family History Family History Father Diabetes mellitus borderline Mother Depression Hypertension Social History Social History Smoking status: Former smoker Tobacco type: e-cigarettes/vaping Second hand tobacco smoke exposure: No Alcohol intake: never Substance use: current Do You Feel Safe in your Home?: Yes Lack of Transportation: No Lack of Food: Never True Current Housing: I Have Housing Concerned About Future Housing: No Difficulty Paying Gas/Electric Bills: No Difficulty Paying for Meds: No Currently Unemployed: No Education: Associate Degree Difficulty w/ Childcare or Family Care: No Spiritual care concerns: No Meds Home Medications and Allergies Home Medications ?Medication ?Instructions ?Recorded ?Confirmed ?Type docosahexaenoic acid 200 mg mg PO 07/21/23 02/14/24 History capsule ( DHA) Allergies Allergy/AdvReac Type Severity Reaction Status Date / Time clavulanic acid (From Allergy Mild Hives Verified 02/28/24 14:21 Augmentin) Vital Signs Vital Signs - 24 hr 03/05/24 06:15 03/05/24 06:16 03/05/24 06:36 Temperature Pulse Rate 92 Respiratory Rate Blood Pressure 113/80 Pulse Oximetry 99 99 Oxygen Delivery 03/05/24 06:39 03/05/24 06:41 03/05/24 06:45 Temperature Pulse Rate 83 Respiratory Rate Blood Pressure 114/81 Pulse Oximetry 100 Oxygen Delivery Room Air 03/05/24 06:46 03/05/24 06:51 03/05/24 06:56 Temperature Pulse Rate Respiratory Rate Blood Pressure Pulse Oximetry 100 100 100 Oxygen Delivery 03/05/24 07:00 03/05/24 07:01 03/05/24 07:03 Temperature Pulse Rate 88 Respiratory Rate Blood Pressure 120/79 Pulse Oximetry 99 99 Oxygen Delivery 03/05/24 07:06 03/05/24 07:11 03/05/24 07:30 Temperature 97.4 F L Pulse Rate Respiratory Rate Blood Pressure Pulse Oximetry 99 100 Oxygen Delivery 03/05/24 09:32 03/05/24 09:34 03/05/24 09:35 Temperature 97.3 F L Pulse Rate 70 Respiratory Rate 12 Blood Pressure 107/69 Pulse Oximetry 100 Oxygen Delivery Room Air 03/05/24 09:39 03/05/24 09:43 03/05/24 09:45 Temperature Pulse Rate Respiratory Rate 15 Blood Pressure Pulse Oximetry 100 100 Oxygen Delivery Room Air 03/05/24 09:46 03/05/24 09:49 03/05/24 09:54 Temperature Pulse Rate 68 Respiratory Rate Blood Pressure 94/52 L Pulse Oximetry 100 100 Oxygen Delivery 03/05/24 09:58 03/05/24 10:00 03/05/24 10:01 Temperature Pulse Rate 77 Respiratory Rate 14 Blood Pressure 102/72 Pulse Oximetry 100 Oxygen Delivery Room Air 03/05/24 10:04 03/05/24 10:09 03/05/24 10:14 Temperature Pulse Rate Respiratory Rate Blood Pressure Pulse Oximetry 100 100 100 Oxygen Delivery 03/05/24 10:15 03/05/24 10:16 03/05/24 10:18 Temperature Pulse Rate 75 Respiratory Rate 16 Blood Pressure 111/73 Pulse Oximetry 99 Oxygen Delivery Room Air 03/05/24 10:24 03/05/24 10:29 03/05/24 10:30 Temperature Pulse Rate 64 Respiratory Rate Blood Pressure 114/77 Pulse Oximetry 99 100 Oxygen Delivery 03/05/24 10:31 03/05/24 10:34 03/05/24 10:38 Temperature Pulse Rate Respiratory Rate 19 Blood Pressure Pulse Oximetry 100 100 Oxygen Delivery Room Air 03/05/24 10:44 03/05/24 10:45 03/05/24 10:45 Temperature Pulse Rate 81 Respiratory Rate 18 Blood Pressure 117/68 Pulse Oximetry 100 Oxygen Delivery Room Air 03/05/24 10:48 03/05/24 10:53 03/05/24 10:58 Temperature Pulse Rate Respiratory Rate Blood Pressure Pulse Oximetry 100 100 100 Oxygen Delivery 03/05/24 11:00 03/05/24 11:01 03/05/24 11:03 Temperature Pulse Rate 114 H Respiratory Rate 19 Blood Pressure 113/80 Pulse Oximetry 100 Oxygen Delivery Room Air 03/05/24 11:08 03/05/24 11:13 03/05/24 11:15 Temperature Pulse Rate 74 Respiratory Rate Blood Pressure 118/102 H Pulse Oximetry 99 99 Oxygen Delivery 03/05/24 11:15 03/05/24 11:17 03/05/24 11:18 Temperature Pulse Rate 75 Respiratory Rate 17 Blood Pressure 116/81 Pulse Oximetry 99 Oxygen Delivery Room Air 03/05/24 11:22 03/05/24 11:27 03/05/24 11:30 Temperature Pulse Rate 74 Respiratory Rate Blood Pressure 122/84 Pulse Oximetry 99 99 Oxygen Delivery 03/05/24 11:30 03/05/24 11:32 03/05/24 11:37 Temperature Pulse Rate Respiratory Rate 17 Blood Pressure Pulse Oximetry 99 99 Oxygen Delivery Room Air 03/05/24 11:42 03/05/24 11:45 03/05/24 11:46 Temperature Pulse Rate 75 Respiratory Rate 18 Blood Pressure 108/37 L Pulse Oximetry 100 Oxygen Delivery Room Air 03/05/24 11:47 03/05/24 11:48 03/05/24 11:52 Temperature Pulse Rate 75 Respiratory Rate Blood Pressure 116/76 Pulse Oximetry 99 100 Oxygen Delivery 03/05/24 11:57 03/05/24 12:00 03/05/24 12:10 Temperature Pulse Rate Respiratory Rate 17 Blood Pressure Pulse Oximetry 99 Oxygen Delivery Room Air Room Air 03/05/24 12:15 Temperature 97.7 F Pulse Rate 64 Respiratory Rate 16 Blood Pressure 110/73 Pulse Oximetry 100 Oxygen Delivery Exam Const: General: no acute distress Eyes: General: appearance normal, both eyes and all related structures Resp: Effort & Inspection: normal respiratory effort Cardio: Rate: regular rate GI: Other: Gravid no fundal tenderness no right upper quadrant pain Skin: General skin exam: no rashes or lesions noted Neuro: Cognition (Neuro): normal cognition Extrem: General: normal to inspection Psych: Mental Status: mental status grossly normal Assessment and Plan Assessment and plan (1) Previous section complicating : Code(s): O34.219 - Maternal care for unspecified type scar from previous delivery Status: Acute Assessment and Plan: She has been requested repeat section. Will perform repeat section,
--- NOTE | 2024-03-05 13:17 | P.PCNOB_ITS ---
OB - Delivery Note Procedure Delivery date: 03/06/24 Pre-op diagnosis: Previous Delivery Post-op Diagnosis: Same Induction method: None Prior to decision for section, ACOG/SMFM labor guidelines were considered and discussed with the patient and staff. Decision made to proceed with the section.: Yes Procedure Performed: Repeat Surgeon: Dwayne Badillo MD Anesthesia type: Spinal Description of Procedure/Findings: Findings-male , [id number], apgars 8,9, normal uterus, ovaries and fallopian tubes. There were 2 loose nuchal cords manually reduced. After informed consent, risks and benefits of the procedure was discussed with the patient. The patient was taken to the operating room where she was placed in the dorsal lithotomy position with leftward tilt. After the spinal anesthesia was admininistered and found to be adequate, she was then prepped and draped in the usual sterile fashion. A Pfannenstiel skin incision was made with a scalpel and carried through to the underlying layer of fascia. The fascia was then nicked in the midline, extending bilaterally. The fascia was dissected off the rectus muscles bluntly and sharply, superiorly and inferiorly. The rectus muscles were in the midline, and peritoneum was identified and entered bluntly. The pelvic organs were visualized. The bladder blade was then inserted. The vesicouterine peritoneum was identified and entered sharply with Metzenbaum scissors and extended bilaterally and then the bladder flap was created digitally. The low transverse uterine incision was then made with the scalpel and extended with bilateral index fingers in a crescent-shaped fashion. Large amount of clear amniotic fluid noted. The head was delivered, 2 loose nuchal cords were manually reduced, and the rest of the was delivered. The nose and mouth suctioned. The cord was clamped twice and cut. The was then handed off to the awaiting pediatric staff. The placenta was then delivered manually. The uterine cavity was sponge curretted. The uterus was then exteriorized. The uterine incision was then closed with 0 vicryl in a running locked fashion. Hemostasis noted. A second layer of 0 vicryl was used in an imbricating fashion. Hemostasis noted. The posterior cul de sac was irrigated and cleared of debri. The uterus was then returned to the abdomen. Bilateral gutters were cleared off all clots and debris. The uterine incision was noted to be hemostatic. Interceed placed at the uterine incision. The muscle bellies were inspected and noted to be hemostatic. The peritoneum was approximated with 3.0 vicryl. The subfascial layer was noted to be hemostatic, and the fascia was closed with 0 Vicryl in a running fashion. The subcutaneous layer was irrigated. The skin was closed with 4.0 vicryl on a [place] needle. Dermabond applied at incision. All instruments, needle, and lap counts were correct x3. The patient was taken to the recovery room in stable condition. Estimated Blood Loss: 600 Urine Output: 75 Drains: No Packing: No Pathology: None sent Complications: No immediate complications Condition: Stable Disposition: Floor Baby Date of : 03/05/24 Time of : 08:46 Gestational Age by Date: 39 Infant gender: Male Weight (pounds): 7 Weight (ounces): 15 presentation: vertex position: Right Occiput Anterior Placenta delivery description: Manual Removal Cord Vessel Description: 3 Vessels, Nuchal Cord (x2) and Loose score one minute: 8 score five minutes: 9
[2024-03-05] MEDS: DEXTROSE 5%/0.45% SOD CHL 1,000 ML 125 ML IV CONT (15:06)
[2024-03-05] MEDS: ACETAMINOPHEN 325 MG TABLET 650 MG PO ×2 (15:07→21:50)
[2024-03-05] MEDS: KETOROLAC 15 MG/ML VIAL (*BKC) IV PUSH ×2 (15:07→21:50)
[2024-03-05] MEDS: DOCUSATE SODIUM 100 MG CAPSULE PO (17:11)
[2024-03-05] MEDS: SIMETHICONE 80 MG TAB.CHEW PO (17:11)
[2024-03-05] MEDS: HYDROcodone/acetaminophen (*CRX) 10-325 MG TABLET 1 TAB PO (19:35)
[2024-03-06] MEDS: HYDROcodone/acetaminophen (*CRX) 10-325 MG TABLET 1 TAB PO ×3 (02:00→19:29)
[2024-03-06] MEDS: ACETAMINOPHEN 325 MG TABLET 650 MG PO ×4 (04:00→21:12)
[2024-03-06] MEDS: KETOROLAC 15 MG/ML VIAL (*BKC) IV PUSH ×2 (04:00→10:52)
[2024-03-06 04:30] VITALS: BP 107/76; PULSE 79; RESP 16; TEMP 36.2; O2SAT 98
[2024-03-06 05:38] LABS: Basophils Percent Auto 0.4 % (0.2-1.2); Eosinophils Absolute Auto 0.1 K/mm3 (0-0.3); Eosinophils Percent Auto 1.2 % (0-4.4); Hematocrit 33.4 % (37.0-47.0); Hemoglobin 10.6 g/dL (12.0-15.0); Immature Granulocyte Absolute 0.11 K/mm3 (0.00-0.031); Immature Granulocyte Percent A 1.1 % (0-0.5); Lymphocytes Absolute Auto 1.68 K/mm3 (0.9-3.2); Lymphocytes Percent Auto 16.3 % (18.3-44.2); Mean Corpuscular HGB Conc 31.7 g/dl (32-36); Mean Corpuscular Hemoglobin 31.1 pg (26-34); Mean Corpuscular Volume 97.9 fl (80-100); Monocytes Absolute Auto 0.7 K/mm3 (0.1-0.6); Monocytes Percent Auto 6.5 % (2.6-8.5); Neutrophils Absolute Auto 7.7 K/mm3 (1.3-6.7); Neutrophils Percent Auto 74.5 % (45.5-73.1); Platelet Count Result 169 k/mm3 (150-375); Red Blood Count 3.41 M/mm3 (4.2-5.4); White Blood Count 10.3 K/mm3 (4.5-10.0)
[2024-03-06 08:00] VITALS: BP 110/65; PULSE 83; RESP 16; TEMP 36.6; O2SAT 98
[2024-03-06] MEDS: MULTIVIT/MIN/PREN/FOL AC/IRON TABLET 1 TAB PO (08:49)
[2024-03-06] MEDS: DOCUSATE SODIUM 100 MG CAPSULE PO ×2 (08:49→15:07)
[2024-03-06] MEDS: SIMETHICONE 80 MG TAB.CHEW PO ×2 (08:49→15:07)
[2024-03-06] MEDS: LIDOCAINE 5% PATCH 1 PATCH TRANSDERM (08:51)
--- NOTE | 2024-03-06 09:46 | P.PNOB_ITS ---
OB - PN: Subj Subjective Date/time seen: 03/06/24 09:46 OB - PN: Obj Data Labs 03/06/24 04:14 Labs: Laboratory Results - last 24 hr 03/06/24 04:14 WBC 10.3 H RBC 3.41 L Hgb 10.6 L Hct 33.4 L MCV 97.9 MCH 31.1 MCHC 31.7 L RDW 14.0 Plt Count 169 MPV 11.0 H Immature Gran % (Auto) 1.1 H Neut % (Auto) 74.5 H Lymph % (Auto) 16.3 L Cassia % (Auto) 6.5 Eos % (Auto) 1.2 Baso % (Auto) 0.4 Lymph # (Auto) 1.68 Cassia # (Auto) 0.7 H Eos # (Auto) 0.1 Baso # (Auto) 0.0 Abs Immat Gran (auto) 0.11 H Absolute Neuts (auto) 7.7 H Absolute Nucleated RBC 0.000 Nucleated RBC % 0.0 OB - PN A/P Assessment and Plan (1) Delivery by section: Status: Acute Assessment and Plan: POD1- doing well. Routine post care. Time Spent With Patient Time: Total time spent is greater than 50% in coordination of care (as documented) at patient's floor/unit and/or counseling patient: Exam 2 Const: General: comfortable and no acute distress Resp: Effort & Inspection: normal respiratory effort GI: Other: incision dressing clean and intact Psych: Mental Status: mental status grossly normal
[2024-03-06] MEDS: IBUPROFEN 600 MG TABLET PO ×2 (15:09→21:12)
--- NOTE | 2024-03-06 15:37 | WPDANLDPN2 ---
Anes-Prog Note L&D Date/Time: 03/06/24 15:37 Comfortable throughout: section Neuraxial method: spinal Epidural/Spinal procedure site: clean & non-tender Neuro status: Neuro function grossly intact. Cardiovascular status: normal Respiratory status: normal Airway patency: baseline Mental status: baseline Post-Op hydration status: normal Vital Signs: Last Vital Signs Temp 36.6 C 03/06/24 08:00 Pulse 83 03/06/24 08:00 Resp 16 03/06/24 08:00 BP 110/65 03/06/24 08:00 Pulse Ox 98 03/06/24 08:00 O2 Del Method Room Air 03/06/24 08:30 Pain score (VAS): 3 I/O: Intake & Output 03/05/24 03/06/24 03/06/24 23:59 07:59 15:59 Intake Total 450 Output Total 900 750 Balance -450 -750 Patient feedback: Patient satisfied with anesthetic care.
--- NOTE | 2024-03-06 15:37 | WPDANLDNPN2 ---
Anes-Prog Note L&D-Neuraxial Date/Time: 03/06/24 15:37 Neuraxial medications: intrathecal PF morphine Opiod-related complaints: none Patient feedback: Patient satisfied with post-operative pain management.
[2024-03-06 21:20] VITALS: BP 136/88; PULSE 89; RESP 16; TEMP 36.6; O2SAT 100
[2024-03-07] MEDS: HYDROcodone/acetaminophen (*CRX) 5-325 MG TABLET 1 TAB PO ×5 (02:16→21:20)
[2024-03-07] MEDS: ACETAMINOPHEN 325 MG TABLET 650 MG PO ×4 (03:30→22:36)
[2024-03-07] MEDS: IBUPROFEN 600 MG TABLET PO ×4 (03:30→22:36)
[2024-03-07 07:25] VITALS: BP 118/76; PULSE 79; RESP 16; TEMP 36.6; O2SAT 99
[2024-03-07] MEDS: DOCUSATE SODIUM 100 MG CAPSULE PO ×2 (08:48→16:23)
[2024-03-07] MEDS: SIMETHICONE 80 MG TAB.CHEW PO ×3 (08:48→16:23)
[2024-03-07] MEDS: MULTIVIT/MIN/PREN/FOL AC/IRON TABLET 1 TAB PO (08:48)
[2024-03-07] MEDS: LIDOCAINE 5% PATCH 1 PATCH TRANSDERM (08:50)
[2024-03-07] MEDS: TETANUS,DIPHTHERIA,AC PERTUSSIS ADULT (0.5 ML) BOOSTRIX IM (11:03)
--- NOTE | 2024-03-07 16:27 | PC.NURSE ---
On 03/07/24, the [facility] student nurse, provided care and completed [employer] documentation on this patient. I have reviewed the student's documentation and agree with the findings.
[2024-03-07 21:02] VITALS: BP 123/81; PULSE 81; RESP 16; TEMP 36.8; O2SAT 100
[2024-03-08] MEDS: HYDROcodone/acetaminophen (*CRX) 10-325 MG TABLET 1 TAB PO (01:58)
[2024-03-08] MEDS: IBUPROFEN 600 MG TABLET PO ×2 (05:35→11:55)
[2024-03-08] MEDS: ACETAMINOPHEN 325 MG TABLET 650 MG PO ×2 (05:35→11:55)
[2024-03-08 07:00] VITALS: BP 107/81; PULSE 67; RESP 16; TEMP 36.8; O2SAT 100
[2024-03-08] MEDS: INFLUENZA TRIVALENT VACCINE 45 MCG/0.5 ML SYRINGE IM (09:06)
[2024-03-08] MEDS: DOCUSATE SODIUM 100 MG CAPSULE PO (09:08)
[2024-03-08] MEDS: MULTIVIT/MIN/PREN/FOL AC/IRON TABLET 1 TAB PO (09:08)
[2024-03-08] MEDS: SIMETHICONE 80 MG TAB.CHEW PO ×2 (09:08→11:55)
[2024-03-08] MEDS: HYDROcodone/acetaminophen (*CRX) 5-325 MG TABLET 1 TAB PO ×2 (09:09→11:55)
--- NOTE | 2024-03-08 09:16 | P.DS_ITS ---
DS: Admitting Diagnosis Discharge Date 03/08/24 Admitting Diagnosis Elective repeat section. DS: Discharge Diagnosis Discharge Diagnosis (1) Delivery by section: Status: Acute OB - DS: Summary Hospital Course Hospital Course: She was admitted for planned repeat section. She had uncomplicated section. She did well post operatively. She had adequate pain control and was ambulating and tolerating regular diet on post op day one. She was discharged to home on post op day three with routine post section precautions. OB Procedures : Ultrasound OB Procedures Intrapartum: OB Procedures: : None Peripartum Data Infant Delivery Method: Section Procedures: Procedures Operation Date: 03/05/24 07:30 Actual Procedure Side Surgeon p Section Dwayne Badillo MD complications: none Status at Discharge Functional status at discharge: independent ambulation Time Spent with Patient Time attestation: Total time spent providing and/or coordinating discharge services: Exam Const: General: cooperative Orientation/consciousness: oriented to person, oriented to place and oriented to time HENMT: Face/Nose/Sinus: Normal external nose present Eyes: General: appearance normal, both eyes and all related structures Resp: Effort & Inspection: normal respiratory effort GI: Inspection: normal to inspection Other: incision intact Skin: General skin exam: normal color Neuro: General: oriented to person, oriented to place and oriented to time Extrem: General: normal to inspection and no calf tenderness Psych: Appearance: grossly normal Mental Status: mental status grossly normal Discharge Plan Discharge Attending physician on discharge: Dwayne Badillo Consulting providers: Deonte Pugh; Luz Winston Discharging Clinician: Dwayne Badillo Anticipated Discharge Date/Time: 03/08/24 09:14 Patient Disposition: Home, Self-Care Activity: may shower, no driving and pelvic rest Diet: regular Discharge Instructions: Education: Mom and Baby Guide Given to: Mother Follow-Up: Call your delivering provider's office for an appointment to be seen in: 1 Week Mom and baby should come to the [facility] for the follow-up appointment. Appointment Date/Time: March 11, 2024 at 9:00 am What to expect at your follow-up visit: Physical Assessment Call [phone] if you are unable to keep your appointment time. BREAST CARE: * Wear a snug supportive bra. * For engorgement discomfort: Bottle Feeding: * May apply ice packs ABDOMINAL INCISION: (if applicable) * Allow incision to air dry * Do NOT use lotions for powders on your incision * When showering, allow soap and water to run over the incision, but do not wash incision EPISIOTOMY/PERINEAL CARE: * Until bleeding stops, use your sincere bottle after urinating * Change your pad frequently throughout the day * No tub baths until seen by your physician - You may shower ACTIVITY: * Rest as much as possible. * Do not exercise or lift anything heavier than your baby (such as laundry or other children.) * Avoid stairs or driving as much as possible. * Do not put anything into the vagina. No douching, tampons, or sexual activity until seen by physician. NOTIFY PHYSICIAN IF YOU HAVE ANY QUESTIONS OR IF ANY OF THE FOLLOWING SYMPTOMS OCCUR: * If your incision becomes red, swollen, or more painful than what you have experienced in the hospital. * If your vaginal bleeding becomes foul smelling. * If your vaginal bleeding becomes more heavy than a period or if your bleeding changes from pink to bright red. However, you may pass an occasional walnut- sized clot once or twice for the first week . * If you experience a sharp, shooting pain in you calves. * If you discover a hard, reddened area on your breast or if you experience flu- like symptoms. DIET: * Eat regular, well-balanced meals. * Drink plenty of fluids daily. If , drink to thirst. Patient Language: Hungarian Stand Alone Forms: General Discharge Information Follow-up/Referrals: Dwayne Badillo MD [Physician] - Call for Appointment (2-3 weeks) Discharge Medications: New hydrocodone-acetaminophen 5-325 mg Tablet 1 tablet PO Q3H PRN (Reason: Breakthrough Pain Rated 4-6) Qty: 20 0RF Continued DHA 200 mg capsule PO Date of admission: 03/05/24 05:35 Primary Care Provider: Larry Engel Admitting Provider: Dwayne Badillo Attending physician on admission: Dwayne Badillo Condition: Stable
--- NOTE | 2024-03-08 09:16 | P.PNOB_ITS ---
OB - PN: Subj Subjective Date/time seen: 03/08/24 09:16 Patient comments: pain well controlled, tolerating diet and other (Decreasing lochia.) baby status: doing well and nursing well OB - PN: Obj Data Labs 03/06/24 04:14 OB - PN A/P Assessment and Plan (1) Delivery by section: Status: Acute Plan POD3. Doing well. discharge to home. Plan day: 3 Plan: discharge home and other Comments: Patient doing well. Follow up 2 weeks. Discharge instructions provided. Time Spent With Patient Time: Total time spent is greater than 50% in coordination of care (as documented) at patient's floor/unit and/or counseling patient: Time with patient: less than 15 minutes Exam 2 GI: Other: incision intact no drainage or erythema Psych: Affect: normal affect Other: Abd: fundus firm below umbilicus Ext: nontender
--- NOTE | 2024-03-08 10:56 | PC.NURSE ---
This RN, has reviewed and verified student nurse Annie Aldana's charting for this patient.
--- NOTE | 2024-03-08 11:14 | PC.NURSE ---
Patient viewed the discharge video Mother & Baby Care, The First Two Weeks . Patient was given the opportunity and encouraged to ask questions. Patient verbalized understanding of information shared and has been given the mother/baby guide for home reference.
[2024-03-11 09:29] VITALS: BP 126/80; PULSE 74; RESP 18; TEMP 36.6; O2SAT 100
== END 2024-03-08 13:35 | disposition home or self-care (01) | DRG 540 ==
LOC: ANHLDR 05:37 → ANHOB2 12:06
PROVIDERS: Admitting Provider Obstetrics & Gynecology; PCP Internal Medicine; Visit Provider Obstetrics & Gynecology
PROC: 10D00Z1 Extraction of Products of Conception, Low, Open Approach (ICD-10-PCS; CPT 59514; principal; 2024-03-05 07:30)
DX: O34.219 Maternal care for unspecified type scar from previous cesarean delivery (principal); O69.81X0 Labor and delivery complicated by cord around neck, without compression, not applicable or unspecified; Z3A.39 39 weeks gestation of pregnancy; Z37.0 Single live birth; Z87.891 Personal history of nicotine dependence; Z23 Encounter for immunization
CPT/HCPCS: 36415; 85025; 85027; 86592; 86703; 86900; 86901; 90471; 90656; 90715; A9270; G0008; G0432; J0690; J1885; J2270; J2274; J2405; J2590; J7120

== ENCOUNTER 2024-06-28 11:34 | Outpatient (CLI) | payer OTHER, SELFPAY ==
--- OUTSIDE RECORDS SUMMARY | 2024-06-28 11:37 | XMS_ITS | Clinical Summary ---
Author Organization [facility] Address [address] [place] [phone] Phone Care Team Providers Care Auto Parker Name Role Phone Unavailable Primary Care Provider Unavailabl e Encounters Date Type Department Care Team Description 06/25/2024 External Device Data [facility] Provider, Abstract 05/21/2024 External Device Data [facility] Provider, Abstract 04/24/2024 External Device Data [facility] Provider, Abstract 04/24/2024 External Device Data [facility] Provider, Abstract 04/13/2024 External Device Data [facility] Provider, Abstract 04/12/2024 External Device Data [facility] Provider, Abstract 04/09/2024 External Device Data [facility] Provider, Abstract from Last 3 Months Social History Tobacco [...] of 3 - 19+ 3-dose series) 05/19/2006 HPV/Cotest (21-29) 05/19/2008 CERVICAL CANCER SCREENING 05/19/2017 HPV/Cotest (30-65) 05/19/2017 PAP SMEAR 05/19/2017 INFLUENZA VACCINE (#1) 2023 HPV VACCINES Aged Out No longer eligi ble based on patient's age to complete this topic [place] [address] [place] [address] MEDICAID
[2024-06-28 12:40] LABS: Influenza A QL RT-PCR Negative (Negative); Influenza B QL RT-PCR Negative (Negative); RSV RNA, RT-PCR Negative (Negative); SARS-CoV-2 RNA PCR Negative (Negative)
== END 2024-06-28 11:35 | disposition home or self-care (01) ==
LOC: CHSLAB 11:35
PROVIDERS: PCP Internal Medicine; Visit Provider Internal Medicine
DX: J06.9 Acute upper respiratory infection, unspecified (principal)
CPT/HCPCS: 87637

== ENCOUNTER 2024-09-02 10:30 | Outpatient (CLI) | payer OTHER, SELFPAY ==
--- NOTE | ~2024-09-02 | XR_ITS ---
XR lumbar spine 2-3V 09/02/2024 11:04 Indication: Low back pain for 6 months Procedure: 3 views lumbar spine Comparison: No prior studies for comparison. Findings: No fracture, subluxation or dislocation. Vertebral body heights are maintained. There is di sc narrowing at L5-S1. Pedicles intact. No evidence for spondylolisthesis. Sacral foramen are symmetr ic. Impression: 1: Mild lumbar spondylosis. Reviewed, dictated and finalized at location A. Impression: 1: Mild lumbar spondylosis.
--- NOTE | ~2024-09-02 | XR_ITS ---
XR finger 1st LT min 2V 09/02/2024 11:04 Indication: Left first finger numbness Procedure: 4 views left first finger Comparison: No prior studies for comparison. Findings: There is anatomic alignment. No fracture, subluxation or dislocation. No soft tissue abnorm ality. No foreign bodies. Impression: 1: No significant abnormality of the left first finger. Reviewed, dictated and finalized at location B. Impression: 1: No significant abnormality of the left first finger.
--- NOTE | ~2024-09-02 | XR_ITS ---
EXAM: XR wrist LT min 3V DATE: 09/02/2024 11:04 HISTORY: constant numb/pain X 6 months, swelling decreased . COMPARISON: X-ray left thumb 09/02/2024. FINDINGS: Normal mineralization. No fracture or dislocation. No lytic or blastic lesion. Mild narrow ing, subchondral sclerosis, and osteophytosis at the first CMC joint. Small, well-corticated ossific fragment adjacent to the first CMC joint, may represent a degenerative fragment or old fracture fragm ent. No erosion or periosteal change. Soft tissues within normal limits. IMPRESSION: Mild first CMC joint osteoarthritis. Otherwise normal left wrist radiograph findings. Reviewed, dictated and finalized at location K. IMPRESSION: Mild first CMC joint osteoarthritis. Otherwise normal left wrist ra diograph findings.
[2024-09-02 10:45] LABS: Hematocrit 43.3 % (35.0-49.0); Hemoglobin 14.1 g/dL (12.0-15.0); Mean Corpuscular HGB Conc 32.6 g/dL (32-36); Mean Corpuscular Hemoglobin 30.0 pg (27.0-31.0); Mean Corpuscular Volume 92.1 fL (78.0-102.0); Platelet Count Result 292 K/mm3 (150-420); Red Blood Count 4.70 M/mm3 (4.20-5.40); White Blood Count 8.0 K/mm3 (4.8-10.8)
--- OUTSIDE RECORDS SUMMARY | 2024-09-02 10:58 | XMS_ITS | Clinical Summary ---
Author Organization [facility] Address [address] [place] [id number] Care Team Providers Care Insurance Associate Name Role Phone Unavailable Primary Care Provider [...] of 3 - 19+ 3-dose series) 05/19/2006 HPV Vaccines (1 - 3-dose SCD M series) 05/19/2014 Cervical Cancer Screening Pa p with HPV Testing (Age 30 to 64) Every 5 Years 05/19/2017 Cervical Cancer Screening with HPV 05/19/2017 COVID-19 Vaccine (2023-2 5 season) 2023 Meningococcal B Vaccine Aged Out No l onger eligible based on patient's age to complete this topic Meningococcal Vaccine Aged Out No derrick barbara eligible based on patient's age to complete this topic Pneumococcal Vaccine: Pediat rics (0 to 5 Years) and At-Risk Patients (6 to 49 Years) Aged Out No longer eligible b ased on patient's age to complete this topic RSV Immunizations Under 20 Months Aged Out No longer eligible based on patient's age to complete this topic
--- OUTSIDE RECORDS SUMMARY | 2024-09-02 10:58 | XMS_ITS | Clinical Summary ---
Author Organization [facility] Address [address] [place] [phone] Phone Care Team Providers Care Before School Babysitter Name Role Phone Unavailable Primary Care Provider Unavailabl e Encounters Date Type Department Care Team Description 08/21/2024 External Device Data [facility] Provider, Abstract 08/20/2024 External Device Data [facility] Provider, Abstract 07/30/2024 External Device Data [facility] Provider, Abstract 07/23/2024 External Device Data [facility] Provider, Abstract 06/27/2024 External Device Data [facility] Provider, Abstract 06/25/2024 External Device Data [facility]STRACTION Provider, [...] Health Maintenance Due Date Last Done Comments HPV VACCINES (1 - 3-dose series) 05/19/2002 DTAP/TDAP/TD VACCINES (1 - Tdap) 05/19/2006 HEPATITIS B VACCINES (1 of 3 - 19+ 3-dose series) 05/07 HPV/Cotest (21-29) 05/19/2008 CERVICAL CANCER SCREENING 05/19/2017 HPV/Cotest (30-65) 05/19/2017 PAP SMEAR 05/19/2017 INFLUENZA VACCINE (#1) 2024 Insurance [facility] MEDICAID
[2024-09-02 11:32] LABS: Alanine Aminotransferase 20 U/L (6-35); Albumin Level 4.5 g/dL (3.5-5.1); Alkaline Phosphatase 77 U/L (38-126); Anion Gap 5 mmol/L (4-12); Aspartate Amino Transferase 24 U/L (14-36); Bilirubin,Total 0.6 mg/dL (0.2-1.3); Blood Urea Nitrogen 10 mg/dL (7-17); CRP < 0.5 mg/dL (<1.0); Calcium 9.3 mg/dL (8.4-10.2); Carbon Dioxide 24 mmol/L (22-30); Chloride 109 mmol/L (98-107); Estimated Glomerular Filt Rate > 60; Glucose 113 mg/dL (65-110); Osmolality Calculated 286 mOsm/kg (285-295); Potassium 4.8 mmol/L (3.4-5.0); Sodium 138 mmol/L (137-145); Total Protein 7.6 g/dL (6.3-8.2)
[2024-09-02 12:00] LABS: Thyroid Stimulating Hormone 1.330 uIU/mL (0.465-4.680)
== END 2024-09-02 10:31 | disposition home or self-care (01) ==
LOC: CHSLAB 10:32
PROVIDERS: PCP Internal Medicine; Visit Provider Internal Medicine
DX: M25.532 Pain in left wrist (principal); M54.50 Low back pain, unspecified; M43.06 Spondylolysis, lumbar region; M19.032 Primary osteoarthritis, left wrist
CPT/HCPCS: 36415; 72100; 73110; 73140; 80053; 84443; 85027; 86140

== ENCOUNTER 2024-09-26 09:03 | Outpatient (RCR) | payer OTHER, SELFPAY ==
--- NOTE | 2024-09-26 11:54 | OPREHPOC ---
Outpatient Therapy Plan of Care This is a Multidisciplinary Plan of Care that may contain components documented by all disciplines (PT, OT, and ST.) PT Problem 1 PT Problem #1 Knowledge Deficit PT Goal 1 Goal / Goal Update The patient will be independent in a home exercise program. Target Visit 2 PT Problem 2 PT Problem #2 Pain PT Goal 1 Goal / Goal Update The patient will report no greater than 3/10 low back pain with sitting for 30 minutes. The patient will report no greater than 3/10 left wrist pain with gripping. Target Visit 8 PT Problem 3 PT Problem #3 Impaired Functional Mobility PT Goal 1 Goal / Goal Update The patient will demonstrate 25% or less self perceived disability per the Back Index questionnaire. Target Visit 8 PT Problem 4 PT Problem #4 Impaired Range of Motion PT Goal 1 Goal / Goal Update The patient will demonstrate pain free lumbar AROM in all planes. The patient will demonstrate pain free left thumb AROM. Target Visit 8 PT Problem 5 PT Problem #5 Impaired Strength PT Goal 1 Goal / Goal Update The patient will demonstrate 3+/5 upper and lower abdominal strength. The patient will demonstrate 4/5 bilateral hip abduction strength. The patient will demonstrate 4/5 left thumb strength. Target Visit 8
--- NOTE | 2024-09-26 11:54 | PTOPEVAL1 ---
Assessment and note entered by Joslyn Mckeon PT Evaluation Information Assessment Status Evaluation Diagnosis Low Back Pain, Left Wrist Pain ICD-10 Condition Codes (PT) Pain in low back M54.50 Onset 09/09/24 Subjective Information Angela Lake reports she has been having low back pain and left wrist pain for about 6 months. She reports the back pain started after having her second child in February 2024. She did have an epidural while in labor and feels her pain is centered where the epidural was entered. The pain is getting worse and constant in the center of the lower back. She notes sitting will make the pain worse. She also started having left wrist pain after having her second child. She notes that her wrist is hard to move and she has popping occasionally that feels like her wrist moves out of socket. She went to the doctor and x-rays were ordered. She reports the x-rays showed arthritis in both areas. She was then referred to PT. She has tried using a brace at night on her wrist but it does not help her pain. She has tried OTC pain medication that does not help. Reported Pain Level Pain Score 7,7: Self Report Assessment PT Clinical Summary Angela Lake presents with low back pain and left wrist pain that has been present for approximately 6 months since having her second child. She has difficulty with bending, sitting, moving her left wrist, and gripping. She objectively demonstrates decreased and painful lumbar AROM, decreased core and bilateral hip strength, decreased left wrist and thumb AROM, decreased left wrist and thumb strength, and decreased functional abilities. She will benefit from skilled PT to address these limitations. Plan of Care Interventions Electrical Stimulation,Hot Pack/Cold Pack,Manual Therapy,Mechanical Traction,Neuro Re-education, Patient/Caregiver Education,Therapeutic Activities ,Therapeutic Exercise PT Services Indicated Yes Treatment Frequency and 2 times a week for 8 visits Duration These treatments will address the objective and functional deficits as defined above. The patient will be advanced safely and appropriately in order for the patient to progress towards his/her prior level of function. Additional exercises will be introduced and as well as a comprehensive home exercise program upon discharge, if needed, ?to ensure carryover of functional gains achieved in the clinic. This treatment plan has been reviewed and agreement upon by the patient.
--- NOTE | 2024-12-03 11:20 | PTOPDC ---
Assessment and note entered by Joslyn Mckeon, PT Evaluation Information Assessment Status Discharge - Pt Not Present Diagnosis Low Back Pain, Left Wrist Pain ICD-10 Condition Codes (PT) Pain in low back M54.50 Onset 09/09/24 Subjective Information Pt not present-no subjective. Assessment PT Clinical Summary Angela Lake attended 4 skilled PT visits for low back pain. She was last seen on 10/11/24 and did not return for additional PT. She is discharged. Plan of Care PT Services Indicated No
== END 2024-10-11 20:00 | disposition home or self-care (01) ==
LOC: CHSPT 09:03
PROVIDERS: PCP Internal Medicine; Visit Provider Internal Medicine
DX: M54.50 Low back pain, unspecified (principal); M25.532 Pain in left wrist
CPT/HCPCS: 97014; 97110; 97140; 97161; G0283